=== PATIENT | female | born 1945 | race Caucasian/White ===

== ENCOUNTER 2024-10-21 21:09 | Inpatient (IN) | payer MEDICARE, BC ==
[~2024-10-21] VITALS: Ht 162.6 cm; Wt 46.7 kg
[2024-10-21] MEDS ORDERED: HYDROCODONE/APAP 5/325MG TABLET ONE (22:18)
[2024-10-21] MEDS: HYDROCODONE/APAP 5/325MG TABLET PO ONE (22:27)
[2024-10-21 22:42] LABS: BASOPHILS # (AUTO) 0.1 K/uL (0.0-0.2); BASOPHILS % (AUTO) 0.9 % (0.0-2.0); EOSINOPHILS # (AUTO) 0.1 K/uL (0.0-0.7); EOSINOPHILS % (AUTO) 1.7 % (0.0-6.0); HEMATOCRIT 34 % (33-45); HEMOGLOBIN 11.5 g/dL (11.5-14.8); LYMPHOCYTES % (AUTO) 23.4 % (20.0-44.0); MEAN CORPUSCULAR HEMOGLOBIN 30 PG (26.0-33.0); MEAN CORPUSCULAR HGB CONC 34 g/dl (31.0-36.0); MEAN CORPUSCULAR VOLUME 89 fL (82-100); MONOCYTES # (AUTO) 0.7 K/uL (0.1-1.30); MONOCYTES % (AUTO) 8.7 % (2.0-12.0); NEUTROPHILS # (AUTO) 5.6 K/uL (1.8-8.9); NEUTROPHILS % (AUTO) 65.3 % (43.0-81.0); PLATELET COUNT (AUTO) 218 K/uL (150-450); RED BLOOD CELL COUNT(AUTO) 3.85 MIL/uL (4.0-5.2); RED CELL DISTRIBUTION WIDTH 13.8 % (11.5-15.0); WHITE BLOOD COUNT (AUTO) 8.6 K/uL (4.3-11.0)
[2024-10-21 22:52] LABS: CALCIUM, SERUM 9.7 mg/dL (8.5-10.1); CARBON DIOXIDE 27 mmol/L (21-32); CHLORIDE 101 mmol/L (98-107); CREATININE 1.3 mg/dL (0.6-1.3); GLUCOSE 96 mg/dL (74-106); POTASSIUM 4.3 mmol/L (3.5-5.1); SODIUM SERUM 136 mmol/L (136-145); UREA NITROGEN, BLOOD 28 mg/dL (7-18)
[2024-10-21 22:56] LABS: D-DIMER 0.33 mg/L(FEU (0.17-0.50); INR 1.02 (0.91-1.10); PARTIAL THROMBOPLASTIN TIME 25.4 SEC (24.3-34.3); PROTHROMBIN TIME 10.8 SECS (9.2-11.1)
[2024-10-21] MEDS: hydrALAZINE HCL IV 20 MG VIAL IV ONE (23:30)
[2024-10-21] MEDS ORDERED: hydrALAZINE HCL IV 20 MG VIAL ONE (23:33)
[2024-10-22] MEDS: MORPHINE SULFATE INJ 2 MG/ML DISP.SYRIN IV ONE (00:30)
[2024-10-22] MEDS ORDERED: MORPHINE SULFATE INJ 4 MG/ML DISP.SYRIN ONE (00:32)
[2024-10-22] MEDS ORDERED: ONDANSETRON HCL/PF 4 MG/2 ML VIAL ONE (00:32)
[2024-10-22] MEDS ORDERED: CT SWABBABLE VALVE TRANS SET 1 EA INFUS.SET MC ONE (00:38)
[2024-10-22] MEDS: ONDANSETRON HCL/PF 4 MG/2 ML VIAL IVP ONE (00:38)
[2024-10-22] MEDS ORDERED: IV NS 0.9% 250 ML IV ONE (00:38)
[2024-10-22] MEDS ORDERED: IOHEXOL-300 100 ML VIAL IV ONE (00:38)
[2024-10-22 02:00] VITALS: O2SAT 97
[2024-10-22 03:00] VITALS: BP 145/69; TEMP 97.5; O2SAT 98
[2024-10-22 08:00] VITALS: BP 132/56; TEMP 98.2; O2SAT 98
[2024-10-22] MEDS: HEPARIN SODIUM, PORCINE 5000 UNITS/1 ML VIAL SQ SCH (09:53)
[2024-10-22] MEDS: MORPHINE SULFATE INJ 2 MG/ML DISP.SYRIN IV PRN (09:58)
[2024-10-22] MEDS ORDERED: ALBU18HF2 IH (12:12)
[2024-10-22] MEDS ORDERED: PARO10TA4 PO (12:12)
[2024-10-22] MEDS ORDERED: CHOL3000 PO (12:12)
[2024-10-22] MEDS ORDERED: NORT25CA PO (12:12)
[2024-10-22] MEDS ORDERED: VIT1CAPS44 PO (12:12)
[2024-10-22] MEDS ORDERED: UBID1CAP54 PO (12:12)
[2024-10-22] MEDS ORDERED: PRAV20TA4 PO (12:12)
[2024-10-22] MEDS ORDERED: FLUD0.1T PO (12:12)
[2024-10-22] MEDS ORDERED: METO25TA4 PO (12:12)
[2024-10-22] MEDS: ACETAMINOPHEN 325 MG TABLET PO PRN (14:54)
[2024-10-22] MEDS: ONDANSETRON HCL/PF 4 MG/2 ML VIAL IVP PRN (15:44)
[2024-10-22 16:00] VITALS: BP 125/89; TEMP 98.4; O2SAT 95
[2024-10-22] MEDS: PAROXETINE HCL 10 MG TABLET PO SCH (18:00)
[2024-10-22] MEDS ORDERED: ALBUTEROL FS 2.5 MG/3 ML VIAL.NEB NEB PRN ×2 (18:00)
[2024-10-22 20:00] VITALS: BP 149/68; TEMP 97.9; O2SAT 95
[2024-10-22] MEDS: MULTIVITAMIN/LUTEIN/MINERALS 1 TAB PO SCH (21:00)
[2024-10-22] MEDS ORDERED: GABA100C PO (21:42)
[2024-10-22] MEDS ORDERED: METH4TAB3 PO (21:42)
[2024-10-22] MEDS: NORTRIPTYLINE HCL 25 MG CAPSULE PO SCH (22:13)
[2024-10-22] MEDS: METOPROLOL SUCCINATE 25 MG TAB.SR.24H PO SCH (22:13)
[2024-10-22] MEDS: hydrALAZINE HCL IV 20 MG VIAL IV PRN (22:50)
[2024-10-22 23:50] VITALS: BP 139/55
[2024-10-23 06:56] LABS: BASOPHILS # (AUTO) 0.1 K/uL (0.0-0.2); BASOPHILS % (AUTO) 1.2 % (0.0-2.0); EOSINOPHILS % (AUTO) 0.8 % (0.0-6.0); HEMATOCRIT 32 % (33-45); HEMOGLOBIN 10.8 g/dL (11.5-14.8); LYMPHOCYTES # (AUTO) 1.1 K/uL (0.8-4.8); LYMPHOCYTES % (AUTO) 18.6 % (20.0-44.0); MEAN CORPUSCULAR HEMOGLOBIN 30 PG (26.0-33.0); MEAN CORPUSCULAR HGB CONC 34 g/dl (31.0-36.0); MEAN CORPUSCULAR VOLUME 89 fL (82-100); MONOCYTES # (AUTO) 0.6 K/uL (0.1-1.30); MONOCYTES % (AUTO) 10.2 % (2.0-12.0); NEUTROPHILS # (AUTO) 4.2 K/uL (1.8-8.9); NEUTROPHILS % (AUTO) 69.2 % (43.0-81.0); PLATELET COUNT (AUTO) 197 K/uL (150-450); RED BLOOD CELL COUNT(AUTO) 3.58 MIL/uL (4.0-5.2); RED CELL DISTRIBUTION WIDTH 13.6 % (11.5-15.0)
[2024-10-23 07:18] LABS: ALBUMIN 3.1 g/dL (3.4-5.0); BILIRUBIN,TOTAL 0.5 mg/dL (0.2-1.0); CALCIUM, SERUM 8.5 mg/dL (8.5-10.1); MAGNESIUM 2.1 mg/dL (1.8-2.4); PHOSPHORUS 3.1 mg/dL (2.5-4.9); POTASSIUM 4.1 mmol/L (3.5-5.1); TOTAL PROTEIN, SERUM 6.5 g/dL (6.4-8.2)
[2024-10-23 08:00] VITALS: BP 142/63; TEMP 98.2; O2SAT 99
[2024-10-23] MEDS: CHOLECALCIFEROL 1,000 UNIT TABLET (VIT D3) PO SCH (08:19)
[2024-10-23] MEDS: FLUDROCORTISONE 0.1 MG TABLET PO SCH (08:19)
[2024-10-23] MEDS: ATORVASTATIN 10 MG TABLET PO SCH (08:22)
[2024-10-23] MEDS ORDERED: IBUPROFEN 600 MG TABLET PO PRN (08:30)
[2024-10-23] MEDS ORDERED: IBUP-2314 PO (09:31)
[2024-10-23] MEDS ORDERED: PANT40TA2 PO (09:31)
== END 2024-10-23 09:58 | disposition home or self-care (01) | DRG 74 ==
LOC: ER 21:13 → TELE1 10-22 02:35 → TELE 10-22 02:36 → MED 10-22 02:59
PROVIDERS: ADMIT Student in an Organized Health Care Education/Training Program; ATTEND Student in an Organized Health Care Education/Training Program
DX: G58.8 Other specified mononeuropathies (principal); I16.9 Hypertensive crisis, unspecified; E87.1 Hypo-osmolality and hyponatremia; E44.1 Mild protein-calorie malnutrition; Z68.1 Body mass index [BMI] 19.9 or less, adult; M25.512 Pain in left shoulder; M54.89 Other dorsalgia; J45.909 Unspecified asthma, uncomplicated; I10 Essential (primary) hypertension; E86.0 Dehydration; D64.9 Anemia, unspecified; E78.5 Hyperlipidemia, unspecified; Z88.2 Allergy status to sulfonamides; D75.9 Disease of blood and blood-forming organs, unspecified
CPT/HCPCS: 36415; 71045-TC; 71260-TC; 73010-TC; 73030-TC; 80048-TC; 80053-TC; 83735-TC; 84100-TC; 84484-TC; 85025-TC; 85378-TC; 85652-TC; 85730-TC; 86140-TC; 97116-TC; 97530-TC; G0378; J0360; J1644; J2270; J2405; J7050; Q9967